=== PATIENT | male | born 1965 | race Caucasian/White ===

== ENCOUNTER → 2017-06-18 | Outpatient (CLI) | payer MEDICARE ==
--- NOTE | 2017-06-18 10:22 | CT ---
EXAMINATION TYPE: CT brain wo/w con DATE OF EXAM: 06/18/2017 COMPARISON: NONE HISTORY: Unspecified injury of head CT DLP: 2085.00mGycm CONTRAST: CT scan of the head is performed without and with IV Contrast, patient injected with 100 ml mL of Omn ipaque 300. Unenhanced followed by contrast enhanced CT of the brain is submitted for evaluation. The ventricles are midline. There is no evidence for intracranial hemorrhage or extra-axial collection. No mass e ffects are identified. Visualized bony calvarium is intact. Contrast is administered and no enhanci ng lesions are detected. No pathologic enhancement is identified. If symptoms persist consider MRI. Mucous retention cyst right maxillary sinus versus polyp. IMPRESSION: No significant abnormality appreciated.
== END | disposition home or self-care (01) ==
LOC: RADCTMAIN 08:51
PROVIDERS: ATTEND Family Medicine
DX: S09.90XA Unspecified injury of head, initial encounter (principal)
CPT/HCPCS: 70470; Q9967